=== PATIENT | male | born 1955 | race Caucasian/White ===

== ENCOUNTER 2019-04-13 16:44 | Emergency (ER) | payer MEDICARE ==
[~2019-04-13] VITALS: Ht 177.8 cm; Wt 77.3 kg
[~2019-04-13 16:44] MED LIST: ASPI81TA52 PO; ATOR-2 PO; LISI-313 PO; METO-448 PO; NITR0.4T32 SL; TICA90TA PO
[2019-04-13 17:08] VITALS: BP 108/68; PULSE 80; RESP 20; Ht 177.8 cm; Wt 77.3 kg
[2019-04-13] MEDS ORDERED: ASPIRIN 81 MG TAB PO STA (17:16)
[2019-04-13] MEDS ORDERED: NITROGLYCERIN (SL) 0.4 MG TAB SL PRN (19:00)
[2019-04-13] MEDS ORDERED: morphine 2 MG INJ IV PRN (19:00)
[2019-04-13] MEDS ORDERED: hydrALAzine 20 MG INJ IV PRN (19:00)
[2019-04-13] MEDS ORDERED: LORAZEPAM 2 MG INJ IV PRN (19:00)
[2019-04-13] MEDS ORDERED: HYDROCODONE/APAP (5/325) TAB PO PRN (19:00)
[2019-04-13] MEDS ORDERED: ONDANSETRON 4 MG INJ IV PRN ×2 (19:00)
[2019-04-13] MEDS ORDERED: MAGNESIUM HYDROXIDE 30ML CUP PO PRN (19:00)
[2019-04-13] MEDS ORDERED: ACETAMINOPHEN 325 MG TAB PO PRN ×2 (19:00)
[2019-04-13] MEDS ORDERED: DOCUSATE SODIUM 100 MG CAP PO PRN (19:00)
[2019-04-13] MEDS ORDERED: ALBUTEROL/IPRATROPIUM (NEB) 3 ML AMP HHN PRN (19:00)
[2019-04-13] MEDS ORDERED: NACL 0.9% 3 ML SYG IV SCH (19:00)
[2019-04-14] MEDS ORDERED: ASPIRIN (EC) 325 MG TAB PO SCH (09:00)
== END 2019-04-13 23:25 | disposition left against medical advice (07) ==
LOC: E/R 16:44 → CANBEDREQ 04-14 16:51
DX: R07.9 Chest pain, unspecified (principal); R55 Syncope and collapse; I10 Essential (primary) hypertension; I25.2 Old myocardial infarction; F17.210 Nicotine dependence, cigarettes, uncomplicated; Z79.82 Long term (current) use of aspirin; Z86.73 Personal history of transient ischemic attack (TIA), and cerebral infarction without residual deficits
CPT/HCPCS: 36415; 71045; 80048; 82550; 82553; 84439; 84484; 85025; 93005